=== PATIENT | male | born 2000 | race African-American/Black ===

== ENCOUNTER 2022-10-20 07:34 | Emergency (ER) | payer BC, OTHER | END 2022-10-20 09:20 | disposition home or self-care (01) | LOC: M ED 07:34 | DX: F43.0 Acute stress reaction (principal); F84.0 Autistic disorder; Z88.5 Allergy status to narcotic agent; Z88.8 Allergy status to other drugs, medicaments and biological substances ==

== ENCOUNTER 2022-11-12 16:45 | Inpatient (IN) | payer BC, OTHER ==
[2022-11-12] MEDS ORDERED: LORazepam 2 MG/ML 1ML VIAL IM STA (16:58)
[2022-11-12] MEDS ORDERED: OLANZapine INTRAMUSCULAR 10MG VIAL IM ONE (17:00)
[2022-11-12 20:31] LABS: HEMATOCRIT 41.2 % (42.0-52.0); HEMOGLOBIN 12.9 g/dl (13.5-17.5); MEAN CORPUSCULAR HGB CONC 31.3 g/dl (32.0-36.5); PLATELET COUNT, AUTOMATED 154 10^3/uL (150-450); RED BLOOD COUNT 5.15 10^6/uL (4.30-6.10); WHITE BLOOD COUNT 6.2 10^3/uL (4.0-10.0)
[2022-11-12 20:58] LABS: ETHYL ALCOHOL (ETHANOL) < 0.003 % (0.000-0.010)
[2022-11-12 20:59] LABS: ACETAMINOPHEN LEVEL < 2.0 UG/ML (10.0-20.0); ALBUMIN 3.4 G/DL (3.2-5.2); ALKALINE PHOSPHATASE 74 U/L (46-116); ALT/SGPT 35 U/L (7.0-40); AST/SGOT 27 U/L (<34); BILIRUBIN,DIRECT 0.2 MG/DL (<0.4); BILIRUBIN,TOTAL 0.6 MG/DL (0.3-1.2); BLOOD UREA NITROGEN 22 MG/DL (9-23); CALCIUM LEVEL 8.5 MG/DL (8.5-10.1); CARBON DIOXIDE LEVEL 28 MMOL/L (20-31); CHLORIDE LEVEL 108 MMOL/L (98-107); CREATININE FOR GFR 1.08 MG/DL (0.70-1.30); GLOMERULAR FILTRATION RATE > 60.0 (>60); GLUCOSE, FASTING 75 MG/DL (60-100); POTASSIUM SERUM 4.2 MMOL/L (3.5-5.1); SALICYLATE LEVEL < 3.0 MG/DL (<30); SODIUM LEVEL 143 MMOL/L (136-145); TOTAL PROTEIN 6.6 G/DL (5.7-8.2)
[2022-11-12 21:02] LABS: THYROID STIMULATING HORMONE 1.836 uIU/ML (0.55-4.78)
[2022-11-12] MEDS ORDERED: C 50TAB PO (23:30)
[2022-11-12] MEDS ORDERED: K2 P1TAB PO (23:30)
[2022-11-12] MEDS ORDERED: L-LY500T23 PO (23:30)
[2022-11-12] MEDS ORDERED: VITA500T40 PO (23:30)
[2022-11-12] MEDS ORDERED: OMEG100011 PO (23:30)
[2022-11-12] MEDS ORDERED: GLUT500C4 PO (23:30)
[2022-11-12] MEDS ORDERED: HOME MED LIST COMPLETE! XX SCH (23:30)
[2022-11-13 11:05] LABS: AMPHETAMINES LEVEL URINE NEGATIVE (NEGATIVE)
[2022-11-13 11:06] LABS: BARBITURATES URINE NEGATIVE (NEGATIVE); BENZODIAZEPINES URINE NEGATIVE (NEGATIVE); CANNABINOIDS URINE NEGATIVE (NEGATIVE); COCAINE METABOLITE URINE NEGATIVE (NEGATIVE); METHADONE URINE NEGATIVE (NEGATIVE); OPIATES URINE NEGATIVE (NEGATIVE); PHENCYCLIDINE URINE NEGATIVE (NEGATIVE)
[2022-11-13] MEDS ORDERED: MAALOX 30 ML SUSP *UDC PO PRN (16:40)
[2022-11-13] MEDS ORDERED: MOM 30ML SUSPENSION UDC PO PRN (16:40)
[2022-11-13] MEDS ORDERED: IBUPROFEN 400MG TAB PO PRN (16:40)
[2022-11-13] MEDS ORDERED: NICOTINE 21MG/24HR 1 EA TRANSDERMAL TD PRN (16:40)
[2022-11-13] MEDS ORDERED: ACETAMINOPHEN TAB 650MG DOSE (2X325MG) PO PRN (16:40)
[2022-11-13 18:42] VITALS: BP 135/66
[2022-11-14] MEDS ORDERED: LORazepam 2 MG/ML 1ML VIAL IM STA (00:21)
[2022-11-14] MEDS ORDERED: HALOPERIDOL 5MG/ML 1ML VIAL IM STA (00:21)
[2022-11-14] MEDS ORDERED: diphenhydrAMINE 50MG/ML VIAL IM STA (00:21)
[2022-11-14] MEDS: diphenhydrAMINE 25MG CAP PO PRN (00:21)
[2022-11-14] MEDS: traZODone 50 MG TAB PO PRN ×2 (00:22→20:14)
[2022-11-14 06:38] VITALS: BP 105/55
[2022-11-14 16:09] VITALS: BP 116/58
[2022-11-14] MEDS: OLANZapine 5 MG TAB PO SCH (20:13)
[2022-11-15 06:05] VITALS: BP 108/58
[2022-11-15] MEDS: diphenhydrAMINE 25MG CAP PO PRN (16:55)
[2022-11-15] MEDS: OLANZapine 5 MG TAB PO SCH (21:26)
[2022-11-15] MEDS: traZODone 50 MG TAB PO PRN (21:26)
[2022-11-16 06:25] VITALS: BP 111/56
[2022-11-16 17:44] VITALS: BP 126/68
[2022-11-16] MEDS: OLANZapine 10 MG TAB PO SCH (21:00)
[2022-11-16] MEDS: traZODone 50 MG TAB PO PRN (21:36)
[2022-11-17] MEDS ORDERED: LORazepam 2 MG/ML 1ML VIAL IM STA (03:34)
[2022-11-17] MEDS ORDERED: diphenhydrAMINE 50MG/ML VIAL IM STA (03:34)
[2022-11-17] MEDS ORDERED: HALOPERIDOL 5MG/ML 1ML VIAL IM STA (03:34)
[2022-11-17 18:00] VITALS: BP 115/58
[2022-11-17] MEDS: OLANZapine 10 MG TAB PO SCH (21:03)
[2022-11-17] MEDS: traZODone 50 MG TAB PO PRN (21:03)
[2022-11-18 06:27] VITALS: BP 108/55
[2022-11-18 16:56] VITALS: BP 117/59
[2022-11-18] MEDS: OLANZapine 10 MG TAB PO SCH (21:40)
[2022-11-18] MEDS: traZODone 50 MG TAB PO PRN (21:40)
[2022-11-19 06:40] VITALS: BP 144/67
[2022-11-19] MEDS: diphenhydrAMINE 25MG CAP PO PRN (14:32)
[2022-11-19 18:12] VITALS: BP 140/63
[2022-11-19] MEDS: OLANZapine 10 MG TAB PO SCH (21:45)
[2022-11-20 06:40] VITALS: BP 148/81
[2022-11-20] MEDS ORDERED: TRAZ-252 PO (11:28)
[2022-11-20] MEDS ORDERED: BENA25CA4 PO (11:28)
[2022-11-20] MEDS ORDERED: OLAN1TAB20 PO (11:28)
== END 2022-11-20 18:39 | disposition home or self-care (01) | DRG 751 ==
LOC: M ED 16:45 → M ED INP 11-13 16:39 → M PSY 11-13 18:28 → M ED 11-13 18:30
PROVIDERS: ADMIT Psychiatry & Neurology Child & Adolescent Psychiatry; ATTEND Student in an Organized Health Care Education/Training Program
DX: F29 Unspecified psychosis not due to a substance or known physiological condition (principal); F84.0 Autistic disorder; Z20.822 Contact with and (suspected) exposure to COVID-19; Z79.899 Other long term (current) drug therapy; Z88.5 Allergy status to narcotic agent; Z88.8 Allergy status to other drugs, medicaments and biological substances; Z91.51 Personal history of suicidal behavior

== ENCOUNTER 2024-02-02 14:53 | Emergency (ER) | payer BC, OTHER ==
[~2024-02-02] VITALS: Ht 185.4 cm; Wt 75.9 kg
[~2024-02-02 14:53] MED LIST: BENA25CA4 PO; C 50TAB PO; GLUT500C4 PO; K2 P1TAB PO; L-LY500T23 PO; OLAN1TAB20 PO; OMEG100011 PO; TRAZ-252 PO; VITA500T40 PO
[2024-02-02 15:03] VITALS: BP 138/61; TEMP 97.7; O2SAT 98
== END 2024-02-02 18:44 | disposition home or self-care (01) ==
LOC: M ED 14:53
DX: F84.0 Autistic disorder (principal); Z88.8 Allergy status to other drugs, medicaments and biological substances; Z88.5 Allergy status to narcotic agent; Z79.899 Other long term (current) drug therapy